=== PATIENT | female | born 1955 | race Asian ===

== ENCOUNTER → 2021-09-30 | Outpatient (CLI) | payer MEDICARE | END | disposition home or self-care (01) | LOC: RADMN 09:29 | PROVIDERS: ATTEND Internal Medicine Geriatric Medicine | DX: M17.11 Unilateral primary osteoarthritis, right knee (principal) | CPT/HCPCS: 73562-TC ==

== ENCOUNTER → 2022-05-18 | Outpatient (CLI) | payer MEDICARE, OTHER | END | disposition home or self-care (01) | LOC: LABPV 14:09 | PROVIDERS: ATTEND Internal Medicine Geriatric Medicine | DX: J84.89 Other specified interstitial pulmonary diseases (principal); R05.3 Chronic cough | CPT/HCPCS: 71046 ==

== ENCOUNTER → 2023-07-02 | Outpatient (CLI) | payer MEDICARE, OTHER | END | disposition home or self-care (01) | LOC: RADPV 12:52 | PROVIDERS: ATTEND Internal Medicine Geriatric Medicine | DX: R05.1 Acute cough (principal) | CPT/HCPCS: 71046 ==